=== PATIENT | female | born 1940 | race Caucasian/White ===

== ENCOUNTER 2016-12-17 11:38 | Observation (INO) | payer MEDICARE ==
--- NOTE | 2016-12-17 11:51 | ED ---
Altered Mental Status HPI - General Stated Complaint: Altered Mental Time Seen by Provider: 12/17/16 11:39 Source: patient, EMS, RN notes reviewed Mode of arrival: EMS Limitations: no limitations - History of Present Illness Initial Comments: 76 year old female presents emergency department via EMS for altered mental status. Patient comes from assisted living home. Patient was recently discharged from [facility] on the [facility]. Patient information is limited at this time as a Garcia altered. Patient states that she came from [place] she denied no definite where she was seen at. Patient does have a history of frequent recurrent tract infections. Family felt that she was more altered than usual. Patient has normal left-sided weakness which is unchanged. Patient denies chest pain, shortness breath, headache, dizziness. Patient has no abdominal complaints. Patient mentions limited at this time. - Related Data Home Medications Medication Instructions Recorded Confirmed Eucerin Cream 1 applic TOPICAL BID 12/17/16 12/17/16 L.acidoph,Paracasei, B.lactis 1 cap PO DAILY 12/17/16 12/17/16 [Probiotic] Lactulose 10 gm PO BID PRN 12/17/16 12/17/16 Loratadine [Claritin] 10 mg PO DAILY 12/17/16 12/17/16 Metoprolol Succinate (ER) [Toprol 50 mg PO DAILY 12/17/16 12/17/16 Xl] Pravastatin Sodium [Pravachol] 20 mg PO HS 12/17/16 12/17/16 Triamcinolone 0.1% Cream [Kenalog] 1 applicatio TOPICAL BID 12/17/16 12/17/16 amLODIPine [Norvasc] 10 mg PO DAILY 12/17/16 12/17/16 risperiDONE [RisperDAL] 1 mg PO BID 12/17/16 12/17/16 traMADol HCL [Ultram] 50 mg PO Q12H PRN 12/17/16 12/17/16 Allergies Allergy/AdvReac Type Severity Reaction Status Date / Time cephalexin [From Keflex] Allergy Unknown Verified 12/17/16 12:19 codeine Allergy Unknown Verified 12/17/16 12:19 Penicillins Allergy Unknown Verified 12/17/16 12:19 Review of Systems ROS Statement: Those systems with pertinent positive or pertinent negative responses have been documented in the HPI. ROS Other: All systems not noted in ROS Statement are negative. Past Medical History History of Any Multi-Drug Resistant Organisms: ESBL Date of last positivie culture/infection: 07/01/16 MDRO Source:: ESBL URINE [email or web address] General Exam Limitations: altered mental status General appearance: alert, in no apparent distress Head exam: Present: atraumatic, normocephalic, normal inspection Eye exam: Present: normal appearance, PERRL, EOMI. Absent: scleral icterus, conjunctival injection, periorbital swelling ENT exam: Present: normal exam, mucous membranes moist Neck exam: Present: normal inspection, full ROM. Absent: tenderness, meningismus, lymphadenopathy Respiratory exam: Present: normal lung sounds bilaterally. Absent: respiratory distress, wheezes, rales, rhonchi, stridor Cardiovascular Exam: Present: regular rate, normal rhythm, normal heart sounds. Absent: systolic murmur, diastolic murmur, rubs, gallop, clicks GI/Abdominal exam: Present: soft, normal bowel sounds. Absent: distended, tenderness, guarding, rebound, rigid Extremities exam: Present: other (Chronic left-sided weakness) Neurological exam: Present: alert, CN II-XII intact. Absent: oriented X3 Skin exam: Present: warm, dry, intact, normal color. Absent: rash Course Vital Signs 12/17/16 11:41 Temperature 97.6 F Pulse Rate 87 Respiratory 16 Rate Blood Pressure 132/65 Medical Decision Making - Medical Decision Making 76-year-old female presented for altered mental status. Family members here states that she is slightly altered. Patient does have recurrent urinary tract infections. Patient's vitals are within normal limits, no fever, no white count. Patient does not meet sepsis criteria at this time. Patient will be started on IV antibiotics while therapy. Patient we monitored closely and patient. - Lab Data Result diagrams: 12/17/16 12:17 12/17/16 12:17 Lab Results 12/17/16 12/17/16 12/17/16 Range/Units 12:17 12:17 12:17 WBC 9.6 (3.8-10.6) k/uL RBC 4.09 (3.80-5.40) m/uL Hgb 12.5 (11.4-16.0) gm/dL Hct 38.2 (34.0-46.0) % MCV 93.3 (80.0-100.0) fL MCH 30.5 (25.0-35.0) pg MCHC 32.7 (31.0-37.0) g/dL RDW 14.3 (11.5-15.5) % Plt Count 322 (150-450) k/uL Neutrophils % 69 % Lymphocytes % 17 % Monocytes % 7 % Eosinophils % 4 % Basophils % 0 % Neutrophils # 6.6 (1.3-7.7) k/uL Lymphocytes # 1.7 (1.0-4.8) k/uL Monocytes # 0.7 (0-1.0) k/uL Eosinophils # 0.4 (0-0.7) k/uL Basophils # 0.0 (0-0.2) k/uL PT (9.0-12.0) sec INR (<1.1) APTT (22.0-30.0) sec Sodium 142 (137-145) mmol/L Potassium 4.2 (3.5-5.1) mmol/L Chloride 103 (98-107) mmol/L Carbon Dioxide 27 (22-30) mmol/L Anion Gap 12 mmol/L BUN 14 (7-17) mg/dL Creatinine 1.67 H (0.52-1.04) mg/dL Est GFR (MDRD) Af Amer 36 (>60 ml/min/1.73 sqM) Est GFR (MDRD) Non-Af 30 (>60 ml/min/1.73 sqM) Glucose 111 H (74-99) mg/dL POC Glucose (mg/dL) (75-99) mg/dL POC Glu [place] Reverse Winder ID Calcium 10.2 (8.4-10.2) mg/dL Total Bilirubin 0.8 (0.2-1.3) mg/dL AST 30 (14-36) U/L ALT 40 (9-52) U/L Alkaline Phosphatase 86 (38-126) U/L Total Creatine Kinase 55 (30-135) U/L CK-MB (CK-2) 0.3 (0.0-2.4) ng/mL CK-MB (CK-2) Rel Index 0.5 Troponin I <0.012 (0.000-0.034) ng/mL Total Protein 7.4 (6.3-8.2) g/dL Albumin 3.7 (3.5-5.0) g/dL Urine Color Urine Appearance (Clear) Urine pH (5.0-8.0) Ur Specific [place] (1.001-1.035) Urine Protein (Negative) Urine Glucose (UA) (Negative) Urine Ketones (Negative) Urine Blood (Negative) Urine Nitrate (Negative) Urine Bilirubin (Negative) Urine Urobilinogen (<2.0) mg/dL Ur Leukocyte Esterase (Negative) Urine RBC (0-5) /hpf Urine WBC (0-5) /hpf Ur Squamous Epith Cells (0-4) /hpf Urine Bacteria (None) /hpf Urine Mucus (None) /hpf 12/17/16 12/17/16 12/17/16 Range/Units 12:35 12:55 12:59 WBC (3.8-10.6) k/uL RBC (3.80-5.40) m/uL Hgb (11.4-16.0) gm/dL Hct (34.0-46.0) % MCV (80.0-100.0) fL MCH (25.0-35.0) pg MCHC (31.0-37.0) g/dL RDW (11.5-15.5) % Plt Count (150-450) k/uL Neutrophils % % Lymphocytes % % Monocytes % % Eosinophils % % Basophils % % Neutrophils # (1.3-7.7) k/uL Lymphocytes # (1.0-4.8) k/uL Monocytes # (0-1.0) k/uL Eosinophils # (0-0.7) k/uL Basophils # (0-0.2) k/uL PT 10.6 (9.0-12.0) sec INR 1.0 (<1.1) APTT 22.0 (22.0-30.0) sec Sodium (137-145) mmol/L Potassium (3.5-5.1) mmol/L Chloride (98-107) mmol/L Carbon Dioxide (22-30) mmol/L Anion Gap mmol/L BUN (7-17) mg/dL Creatinine (0.52-1.04) mg/dL Est GFR (MDRD) Af Amer (>60 ml/min/1.73 sqM) Est GFR (MDRD) Non-Af (>60 ml/min/1.73 sqM) Glucose (74-99) mg/dL POC Glucose (mg/dL) 100 H (75-99) mg/dL POC Glu [place] Reverse Winder ID Kasey Love Calcium (8.4-10.2) mg/dL Total Bilirubin (0.2-1.3) mg/dL AST (14-36) U/L ALT (9-52) U/L Alkaline Phosphatase (38-126) U/L Total Creatine Kinase (30-135) U/L CK-MB (CK-2) (0.0-2.4) ng/mL CK-MB (CK-2) Rel Index Troponin I (0.000-0.034) ng/mL Total Protein (6.3-8.2) g/dL Albumin (3.5-5.0) g/dL Urine Color Yellow Urine Appearance Cloudy H (Clear) Urine pH 6.5 (5.0-8.0) Ur Specific [place] 1.010 (1.001-1.035) Urine Protein 1+ H (Negative) Urine Glucose (UA) Negative (Negative) Urine Ketones Negative (Negative) Urine Blood Negative (Negative) Urine Nitrate Positive H (Negative) Urine Bilirubin Negative (Negative) Urine Urobilinogen <2.0 (<2.0) mg/dL Ur Leukocyte Esterase Large H (Negative) Urine RBC 4 (0-5) /hpf Urine WBC 99 H (0-5) /hpf Ur Squamous Epith Cells 3 (0-4) /hpf Urine Bacteria Moderate H (None) /hpf Urine Mucus Rare H (None) /hpf Disposition Clinical Impression: Altered mental status, UTI (urinary tract infection) Disposition: ADMITTED IP TO THIS HOSP
[2016-12-17 12:42] LABS: Basophils % (A) 0 %; CH 31.1; CHCM 33.5; Eosinophils # (A) 0.4 k/uL (0-0.7); Eosinophils % (A) 4 %; HCT 38.2 % (34.0-46.0); HDW 3.13; HGB 12.5 gm/dL (11.4-16.0); Luc # (Auto) 0.24; Luc % (Auto) 3; Lymphocytes # (A) 1.7 k/uL (1.0-4.8); Lymphocytes % (A) 17 %; MCH 30.5 pg (25.0-35.0); MCHC 32.7 g/dL (31.0-37.0); MCV 93.3 fL (80.0-100.0); Mean Platelet Volume 6.8; Monocytes # (A) 0.7 k/uL (0-1.0); Monocytes % (A) 7 %; Neutrophils # (A) 6.6 k/uL (1.3-7.7); Neutrophils % (A) 69 %; RBC 4.09 m/uL (3.80-5.40); RDW 14.3 % (11.5-15.5); WBC 9.6 k/uL (3.8-10.6); WBC (Perox) 9.58
[2016-12-17 12:52] LABS: Calcium 10.2 mg/dL (8.4-10.2); Potassium 4.2 mmol/L (3.5-5.1); Total Bilirubin 0.8 mg/dL (0.2-1.3); Total Protein 7.4 g/dL (6.3-8.2)
[2016-12-17 13:01] LABS: Glucose,Whole Blood 100 mg/dL (75-99)
[2016-12-17 13:02] LABS: Appearance,Urine Cloudy (Clear); Bacteria,Urine Moderate /hpf; Bilirubin,Urine Negative (Negative); Glucose,Urine (UA) Negative (Negative); Ketones,Urine Negative (Negative); Leukocyte Esterase,Urine Large (Negative); Mucus,Urine Rare /hpf; Nitrite,Urine Positive (Negative); PH, Urine 6.5 (5.0-8.0); Particle Count 112851; Protein,Urine 1+ (Negative); RBC,Urine 4 /hpf (0-5); Squamous Epithelial Cell,Urine 3 /hpf (0-4); UA Billing (MACRO vs. MICRO) MICRO; Urobilinogen,Urine <2.0 mg/dL (<2.0); WBC,Urine 99 /hpf (0-5)
[2016-12-17 13:05] LABS: Creatine Kinase 55 U/L (30-135)
[2016-12-17 13:16] LABS: Creatine Kinase MB 0.3 ng/mL (0.0-2.4); Troponin I <0.012 ng/mL (0.000-0.034)
[2016-12-17 13:27] LABS: Prothrombin Time 10.6 sec (9.0-12.0)
--- NOTE | 2016-12-17 14:22 | XR ---
EXAMINATION TYPE: XR chest 2V DATE OF EXAM: 12/17/2016 2:06 PM COMPARISON: NONE HISTORY: Altered mental status TECHNIQUE: Frontal and lateral views of the chest are obtained. FINDINGS: Patient is rotated and lung volumes are low. Interstitium is somewhat increased. Surgical clips in the right axilla. No evident pneumothorax or pleural effusion. Heart is enlarged. IMPRESSION: Rotated expiratory exam. Cardiomegaly. Difficult to exclude some central atelectasis or possible pulmonary venous hypertension and early interstitial edema, follow-up recommended as indicat ed
--- NOTE | 2016-12-17 14:32 | CT ---
EXAMINATION TYPE: CT brain wo con DATE OF EXAM: 12/17/2016 1:59 PM COMPARISON: NONE INDICATION: Patient poor historian. Patient shows signs of altered mental status. DLP: 816.3 mGycm, Automated exposure control for dose reduction was used. CONTRAST: None CT of the brain is performed utilizing 3 mm thick sections through the posterior fossa and 3 mm thick sections through the remaining calvarium. Study is performed within 24 hours of arrival to the hosp ital. No abnormal hyperdensity is present to suggest an acute intracranial hemorrhage. No mass lesion is evident. No acute infarcts are evident. There are confluent white matter hypodensities within the periventricu lar white matter greater in the frontal regions. Findings could be compatible with chronic white princess er ischemic change. Ventricles and sulci are mildly prominent for the patient age. There is mucosal thickening throughout ethmoid air cells. Frontal sinuses are hypoplastic. Sphenoid s inus is within the [id number] and mastoid air cells within the [id number] are clear. IMPRESSIONS: 1. Chronic appearing white matter ischemic changes and age-related atrophy.
[2016-12-17] MEDS ORDERED: LEVOFLOXACIN 750MG-D5W PMX 750 MG in DEXTROSE/WATER 1 150ML.BAG IVPB STA (14:42)
[2016-12-17] MEDS ORDERED: NALOXONE 0.4 MG/ML 1 ML VIAL IV PRN (14:43)
[2016-12-17] MEDS ORDERED: ONDANSETRON 4 MG/2 ML VIAL IVP PRN (14:43)
[2016-12-17] MEDS ORDERED: LORazepam 2 MG/ML SYRINGE IV PRN (14:43)
--- NOTE | 2016-12-17 14:43 | ED ---
Altered Mental Status HPI - General Chief Complaint: Altered Mental Status Stated Complaint: Altered Mental Time Seen by Provider: 12/17/16 11:39 Source: patient, EMS, RN notes reviewed Mode of arrival: EMS Limitations: altered mental status - Related Data Home Medications Medication Instructions Recorded Confirmed Eucerin Cream 1 applic TOPICAL BID 12/17/16 12/17/16 L.acidoph,Paracasei, B.lactis 1 cap PO DAILY 12/17/16 12/17/16 [Probiotic] Lactulose 10 gm PO BID PRN 12/17/16 12/17/16 Loratadine [Claritin] 10 mg PO DAILY 12/17/16 12/17/16 Metoprolol Succinate (ER) [Toprol 50 mg PO DAILY 12/17/16 12/17/16 Xl] Pravastatin Sodium [Pravachol] 20 mg PO HS 12/17/16 12/17/16 Triamcinolone 0.1% Cream [Kenalog] 1 applicatio TOPICAL BID 12/17/16 12/17/16 amLODIPine [Norvasc] 10 mg PO DAILY 12/17/16 12/17/16 risperiDONE [RisperDAL] 1 mg PO BID 12/17/16 12/17/16 traMADol HCL [Ultram] 50 mg PO Q12H PRN 12/17/16 12/17/16 Allergies Allergy/AdvReac Type Severity Reaction Status Date / Time cephalexin [From Keflex] Allergy Unknown Verified 12/17/16 12:19 codeine Allergy Unknown Verified 12/17/16 12:19 Penicillins Allergy Unknown Verified 12/17/16 12:19 Review of Systems ROS Statement: Those systems with pertinent positive or pertinent negative responses have been documented in the HPI. ROS Other: All systems not noted in ROS Statement are negative. Past Medical History Past Medical History: CVA/TIA, Dementia, Hypertension, Renal Disease Additional Past Medical History / Comment(s): left sided weakness r/t HX of CVA. HX of UTI History of Any Multi-Drug Resistant Organisms: ESBL Date of last positivie culture/infection: 07/01/16 MDRO Source:: ESBL URINE [email or web address] Past Surgical History: Hysterectomy Past Psychological History: Bipolar Smoking Status: Former smoker Past Alcohol Use History: None Reported Past Drug Use History: None Reported General Exam Limitations: altered mental status General appearance: alert, in no apparent distress Course Vital Signs 12/17/16 11:41 Temperature 97.6 F Pulse Rate 87 Respiratory 16 Rate Blood Pressure 132/65 Medical Decision Making - Lab Data Result diagrams: 12/17/16 12:17 12/17/16 12:17 Lab Results 12/17/16 12/17/16 12/17/16 Range/Units 12:17 12:17 12:17 WBC 9.6 (3.8-10.6) k/uL RBC 4.09 (3.80-5.40) m/uL Hgb 12.5 (11.4-16.0) gm/dL Hct 38.2 (34.0-46.0) % MCV 93.3 (80.0-100.0) fL MCH 30.5 (25.0-35.0) pg MCHC 32.7 (31.0-37.0) g/dL RDW 14.3 (11.5-15.5) % Plt Count 322 (150-450) k/uL Neutrophils % 69 % Lymphocytes % 17 % Monocytes % 7 % Eosinophils % 4 % Basophils % 0 % Neutrophils # 6.6 (1.3-7.7) k/uL Lymphocytes # 1.7 (1.0-4.8) k/uL Monocytes # 0.7 (0-1.0) k/uL Eosinophils # 0.4 (0-0.7) k/uL Basophils # 0.0 (0-0.2) k/uL PT (9.0-12.0) sec INR (<1.1) APTT (22.0-30.0) sec Sodium 142 (137-145) mmol/L Potassium 4.2 (3.5-5.1) mmol/L Chloride 103 (98-107) mmol/L Carbon Dioxide 27 (22-30) mmol/L Anion Gap 12 mmol/L BUN 14 (7-17) mg/dL Creatinine 1.67 H (0.52-1.04) mg/dL Est GFR (MDRD) Af Amer 36 (>60 ml/min/1.73 sqM) Est GFR (MDRD) Non-Af 30 (>60 ml/min/1.73 sqM) Glucose 111 H (74-99) mg/dL POC Glucose (mg/dL) (75-99) mg/dL POC Glu Oil Furnace Installer ID Calcium 10.2 (8.4-10.2) mg/dL Total Bilirubin 0.8 (0.2-1.3) mg/dL AST 30 (14-36) U/L ALT 40 (9-52) U/L Alkaline Phosphatase 86 (38-126) U/L Total Creatine Kinase 55 (30-135) U/L CK-MB (CK-2) 0.3 (0.0-2.4) ng/mL CK-MB (CK-2) Rel Index 0.5 Troponin I <0.012 (0.000-0.034) ng/mL Total Protein 7.4 (6.3-8.2) g/dL Albumin 3.7 (3.5-5.0) g/dL Urine Color Urine Appearance (Clear) Urine pH (5.0-8.0) Ur Specific Excel (1.001-1.035) Urine Protein (Negative) Urine Glucose (UA) (Negative) Urine Ketones (Negative) Urine Blood (Negative) Urine Nitrate (Negative) Urine Bilirubin (Negative) Urine Urobilinogen (<2.0) mg/dL Ur Leukocyte Esterase (Negative) Urine RBC (0-5) /hpf Urine WBC (0-5) /hpf Ur Squamous Epith Cells (0-4) /hpf Urine Bacteria (None) /hpf Urine Mucus (None) /hpf 12/17/16 12/17/16 12/17/16 Range/Units 12:35 12:55 12:59 WBC (3.8-10.6) k/uL RBC (3.80-5.40) m/uL Hgb (11.4-16.0) gm/dL Hct (34.0-46.0) % MCV (80.0-100.0) fL MCH (25.0-35.0) pg MCHC (31.0-37.0) g/dL RDW (11.5-15.5) % Plt Count (150-450) k/uL Neutrophils % % Lymphocytes % % Monocytes % % Eosinophils % % Basophils % % Neutrophils # (1.3-7.7) k/uL Lymphocytes # (1.0-4.8) k/uL Monocytes # (0-1.0) k/uL Eosinophils # (0-0.7) k/uL Basophils # (0-0.2) k/uL PT 10.6 (9.0-12.0) sec INR 1.0 (<1.1) APTT 22.0 (22.0-30.0) sec Sodium (137-145) mmol/L Potassium (3.5-5.1) mmol/L Chloride (98-107) mmol/L Carbon Dioxide (22-30) mmol/L Anion Gap mmol/L BUN (7-17) mg/dL Creatinine (0.52-1.04) mg/dL Est GFR (MDRD) Af Amer (>60 ml/min/1.73 sqM) Est GFR (MDRD) Non-Af (>60 ml/min/1.73 sqM) Glucose (74-99) mg/dL POC Glucose (mg/dL) 100 H (75-99) mg/dL POC Glu Oil Furnace Installer ID Kasey Love Calcium (8.4-10.2) mg/dL Total Bilirubin (0.2-1.3) mg/dL AST (14-36) U/L ALT (9-52) U/L Alkaline Phosphatase (38-126) U/L Total Creatine Kinase (30-135) U/L CK-MB (CK-2) (0.0-2.4) ng/mL CK-MB (CK-2) Rel Index Troponin I (0.000-0.034) ng/mL Total Protein (6.3-8.2) g/dL Albumin (3.5-5.0) g/dL Urine Color Yellow Urine Appearance Cloudy H (Clear) Urine pH 6.5 (5.0-8.0) Ur Specific Excel 1.010 (1.001-1.035) Urine Protein 1+ H (Negative) Urine Glucose (UA) Negative (Negative) Urine Ketones Negative (Negative) Urine Blood Negative (Negative) Urine Nitrate Positive H (Negative) Urine Bilirubin Negative (Negative) Urine Urobilinogen <2.0 (<2.0) mg/dL Ur Leukocyte Esterase Large H (Negative) Urine RBC 4 (0-5) /hpf Urine WBC 99 H (0-5) /hpf Ur Squamous Epith Cells 3 (0-4) /hpf Urine Bacteria Moderate H (None) /hpf Urine Mucus Rare H (None) /hpf Disposition Clinical Impression: Altered mental status, UTI (urinary tract infection) Disposition: ADMITTED IP TO THIS HOSP Condition: Stable Referrals: Benjamin Carter MD [Primary Care Provider] - 1-2 days Time of Disposition: 14:43
[2016-12-17] MEDS ORDERED: traMADol 50 MG TAB PO PRN (14:44)
[2016-12-17] MEDS ORDERED: LACTULOSE 20 GM/30 ML CUP PO PRN (14:44)
[2016-12-17] MEDS ORDERED: ACETAMINOPHEN IV (For NPO) 1,000 MG in EMPTY BAG 1 BAG IVPB STA (14:53)
[2016-12-17 20:02] LABS: Glucose,Whole Blood 82 mg/dL (75-99)
[2016-12-17] MEDS: risperiDONE 1 MG TAB PO SCH (20:58)
[2016-12-17] MEDS: PRAVASTATIN SODIUM 20 MG TAB PO SCH (21:08)
[2016-12-18] MEDS: METOPROLOL SUCCINATE (ER) 50 MG TAB.ER.24H PO SCH (07:57)
[2016-12-18] MEDS: amLODIPine 10 MG TAB PO SCH (07:57)
[2016-12-18] MEDS: risperiDONE 1 MG TAB PO SCH ×2 (07:57→19:55)
[2016-12-18] MEDS: TRIAMCINOLONE 0.1% CREAM 80 GM TUBE TOPICAL SCH ×2 (10:18→20:23)
[2016-12-18] MEDS ORDERED: LORazepam 0.5 MG TAB PO PRN (13:24)
[2016-12-18] MEDS: MINERAL OIL-WHITE PETROLATUM 120 GM JAR TOPICAL SCH ×2 (14:16→20:23)
--- NOTE | 2016-12-18 14:29 | HP ---
DATE OF ADMISSION: 12/17/2016 PRESENTING COMPLAINT: Altered mental status. HISTORY OF PRESENTING COMPLAINT: This is a 76-year-old patient of Visiting Physician, Dr. Carter, whose chronic stable medical conditions include coronary artery disease with prior stroke with left-sided weakness, dementia, hyperlipidemia, hypertension. Patient was at [facility] recently and has been at [facility] for about a week. Patient was brought in feeling more lethargic. Patient herself is not much of a historian, cannot tell me why she is here. Patient was difficult to arouse this morning per the nursing staff. They held the Risperdal. Patient's urine did come by infected-appearing and she was given ceftriaxone in the ER. The patient herself is not able to give me any history, can only answer some simple questions. REVIEW OF SYSTEMS: Cannot get more details. See above. Past medical history of coronary artery disease, strokes, left-sided weakness, dementia, hyperlipidemia, hypertension, bipolar, some renal disease. PAST SURGICAL HISTORY: Hysterectomy. SOCIAL HISTORY: No smoking. No alcohol Patient currently a resident of [facility]. FAMILY HISTORY: Patient cannot tell. HOME MEDICATIONS: 1. Ultram 50 mg p.o. q.12 p.r.n. 2. Risperdal 1 mg p.o. b.i.d. 3. Norvasc 10 mg p.o. daily. 4. Kenalog topical b.i.d. 5. Pravachol 20 mg p.o. q.h.s. 6. Toprol-XL 50 mg p.o. daily. 7. Claritin 10 mg p.o. daily. 8. Lactulose 10 mg p.o. daily p.r.n. 9. Probiotic 1 capsule p.o. daily. 10. Eucerin cream topical b.i.d. ALLERGY TO KEFLEX, CODEINE, PENICILLIN. On examination, T-max 100.5, pulse 88, respiratory rate 14, blood pressure 131/71, pulse 92% on 2 liters. GENERAL APPEARANCE: Obese; BMI of 32.3, lying in bed, tired, but awake. EYES: Pupils equal. Conjunctivae normal. HEENT: Oral cavity normal. NECK: JVD not raised. Mass not palpable. RESPIRATORY: Effort normal. Lungs are clear. CARDIOVASCULAR: First and second sounds normal. No edema. ABDOMEN: Soft, nontender. Liver and spleen not palpable. PSYCHIATRY: Patient could only answer very simple questions, more of a yes and no, but cannot give me rather more descriptive answers. NEUROLOGICAL: Pupils equal. Some left-sided weakness is present. INVESTIGATIONS: White count 9.6, hemoglobin 12.5. Potassium 4.2, BUN 40, creatinine 1.67. UA positive for nitrite, leukocyte esterase, WBC. ASSESSMENT: 1. Acute urinary tract infection with some possible acute delirium from the same, could be contribution of medication induced. 2. Acute metabolic encephalopathy, could be medication induced. Patient not arousable this morning. Had to be held off of Risperdal and also could be contribution of Claritin. 3. Obesity; body mass index 32.3. 4. Coronary artery disease. 5. Some mild left-sided weakness from chronic stroke. 6. Alzheimer's dementia, probably late onset, no clear evidence of psychosis. 7. Hyperlipidemia. 8. Hypertension. 9. Possible bipolar, history of. PLAN: At this point, patient was put on IV ceftriaxone. Will await culture results. We will cut back on the dose of Risperdal 2.75 and 19.25 in the morning. We will discontinue the Claritin for now. We will see how the patient fairs and go from there.
[2016-12-18] MEDS: risperiDONE 0.25 MG TAB PO SCH (20:18)
[2016-12-18] MEDS: PRAVASTATIN SODIUM 20 MG TAB PO SCH (20:18)
[2016-12-19] MEDS: amLODIPine 10 MG TAB PO SCH (08:22)
[2016-12-19] MEDS: risperiDONE 0.25 MG TAB PO SCH ×2 (08:22→20:48)
[2016-12-19] MEDS: METOPROLOL SUCCINATE (ER) 50 MG TAB.ER.24H PO SCH (08:22)
[2016-12-19] MEDS: TRIAMCINOLONE 0.1% CREAM 80 GM TUBE TOPICAL SCH ×2 (08:23→20:47)
[2016-12-19] MEDS: MINERAL OIL-WHITE PETROLATUM 120 GM JAR TOPICAL SCH ×2 (08:23→20:47)
[2016-12-19] MEDS: PRAVASTATIN SODIUM 20 MG TAB PO SCH (20:48)
--- NOTE | 2016-12-20 08:26 | PN ---
DATE OF SERVICE: 12/19/2016 PRESENTING COMPLAINT: Altered mental status. INTERVAL HISTORY: This is a patient who presented with a UTI and metabolic encephalopathy. Patient's dose of Risperdal was cut back. Claritin was discontinued. Patient far more awake today, sitting up. Daughter at the bedside. Patient is eating her meals. More communicative. Review of systems done for constitutional, cardiovascular, GI, pulmonary; relevant findings as above. Current medications are reviewed and include IV ceftriaxone. On examination, temperature 98.4, pulse 77, respirations 21, blood pressure 133/63, pulse ox 95% on 2 liters. GENERAL APPEARANCE: Sitting up, more awake. EYES: Pupils equal. Conjunctivae normal. NECK: JVD not raised. Mass not palpable. RESPIRATORY: Effort normal. Lungs are clear. CARDIOVASCULAR: First and second sounds. No edema. ABDOMEN: Soft, nontender. Liver and spleen not palpable. PSYCHIATRY: Awake, answering questions more appropriately. INVESTIGATIONS: Urine is growing Escherichia coli. ASSESSMENT: 1. Acute urinary tract infection with delirium from Escherichia coli. 2. Acute metabolic encephalopathy probably medication induced, probably from Risperdal, improved with the dose being cut back. 3. Obesity, body mass index of 32.3. 4. Coronary artery disease. 5. Left-sided weakness from old stroke. 6. Alzheimer's dementia, probably late onset with no evidence of psychosis. 7. Hyperlipidemia. 8. Essential hypertension. 9. Bipolar disorder. PLAN: Care was discussed with daughter. She is quite happy. We will switch the patient over to Keflex. Continue current medication and treatment plan. Will follow.
[2016-12-20 09:04] LABS: Basophils % (A) 0 %; CH 30.7; CHCM 32.9; Eosinophils # (A) 0.6 k/uL (0-0.7); Eosinophils % (A) 5 %; HCT 38.3 % (34.0-46.0); HDW 3.17; HGB 12.2 gm/dL (11.4-16.0); Luc # (Auto) 0.22; Luc % (Auto) 2; Lymphocytes # (A) 1.7 k/uL (1.0-4.8); Lymphocytes % (A) 17 %; MCH 29.8 pg (25.0-35.0); MCHC 31.7 g/dL (31.0-37.0); MCV 93.9 fL (80.0-100.0); Mean Platelet Volume 6.8; Monocytes # (A) 0.5 k/uL (0-1.0); Monocytes % (A) 5 %; Neutrophils # (A) 7.1 k/uL (1.3-7.7); Neutrophils % (A) 70 %; RBC 4.08 m/uL (3.80-5.40); RDW 13.8 % (11.5-15.5); WBC 10.2 k/uL (3.8-10.6); WBC (Perox) 10.63
[2016-12-20] MEDS: risperiDONE 0.25 MG TAB PO SCH ×2 (09:38→20:29)
[2016-12-20] MEDS: amLODIPine 10 MG TAB PO SCH (09:38)
[2016-12-20] MEDS: METOPROLOL SUCCINATE (ER) 50 MG TAB.ER.24H PO SCH (09:38)
[2016-12-20] MEDS: MINERAL OIL-WHITE PETROLATUM 120 GM JAR TOPICAL SCH ×2 (09:39→20:30)
[2016-12-20] MEDS: TRIAMCINOLONE 0.1% CREAM 80 GM TUBE TOPICAL SCH ×2 (09:39→20:30)
[2016-12-20] MEDS: PRAVASTATIN SODIUM 20 MG TAB PO SCH (20:29)
[2016-12-20] MEDS ORDERED: SODIUM CHLORIDE 0.9% 1,000 ML IV SCH (21:00)
[2016-12-21 00:26] VITALS: RESP 18
[2016-12-21] MEDS: TRIAMCINOLONE 0.1% CREAM 80 GM TUBE TOPICAL SCH (07:34)
[2016-12-21] MEDS: MINERAL OIL-WHITE PETROLATUM 120 GM JAR TOPICAL SCH (07:34)
[2016-12-21] MEDS: amLODIPine 10 MG TAB PO SCH (07:34)
[2016-12-21] MEDS: METOPROLOL SUCCINATE (ER) 50 MG TAB.ER.24H PO SCH (07:34)
[2016-12-21] MEDS: CEPHALEXIN 500 MG CAP PO SCH ×2 (08:46→13:23)
--- NOTE | 2016-12-21 12:25 | PN ---
DATE OF SERVICE: 12/20/2016 PRESENTING COMPLAINT: Altered mental status. INTERVAL HISTORY: This patient presented with acute UTI and metabolic encephalopathy, after dose of Risperdal was cut back, doing well, actually tolerating a diet. Far more communicative. When I walked into the room she said janet doctor. Review of systems done for for constitutional, cardiovascular, GI, pulmonary; relevant findings as above. Current medications are reviewed that include Keflex. On examination, temperature 98.3, pulse 82, respirations 19, blood pressure 131/66, pulse ox 93% on 2 L. GENERAL APPEARANCE: Sitting up, comfortable. EYES: Pupils equal, conjunctivae normal. NECK: JVD not raised. Mass not palpable. Respiratory effort normal. Lungs are clear. CARDIOVASCULAR: First and second sounds normal. No edema. ABDOMEN: Soft, nontender. Liver and spleen not palpable. PSYCHIATRY: Awake, answering questions. INVESTIGATIONS: White count 10.2. Potassium 5.0, BUN 23, creatinine 1.30. ASSESSMENT: 1. Acute urinary tract infection causing delirium from Escherichia coli. 2. Acute metabolic encephalopathy, probably medication-induced, probably from Risperdal improvement, dose being cut back. 3. Obesity, body mass index of 32.3. 4. Coronary artery disease. 5. Left-sided weakness from old stroke. 6. Alzheimer's dementia, probably late onset. 7. Hyperlipidemia. 8. Essential hypertension. 9. Bipolar disorder, history of. PLAN: Continue current medication and treatment plan. Patient overall doing much better. Will DC the morning dose of Risperdal as patient is relative more sleeping this morning. Will also hydrate the patient overnight.
--- NOTE | 2016-12-21 14:59 | DS ---
DATE OF ADMISSION: 12/17/2016 DATE OF DISCHARGE: FINAL DIAGNOSIS(ES): 1. Acute urinary tract infection causing delirium from Escherichia coli present on admission. 2. Acute metabolic encephalopathy medication induced and probably from infection, including ( ) present on admission. 3. Obesity, body mass index of 32.3. 4. Coronary artery disease. 5. Left-sided weakness from old stroke. 6. Alzheimer's dementia, late onset. 7. Hyperlipidemia. 8. Essential hypertension. HOSPITAL COURSE: This patient presented with drowsy, lethargic, found to have UTI . Dose of Risperdal was cut back. Patient is doing really well, tolerating a diet. Urine culture did come back showing E. coli. Patient's BUN/creatinine was 23, 1.30. Today I tried to call the daughter twice on the phone to just give her an update. On exam, lungs are clear. CARDIOVASCULAR: First and second seconds are normal. DISCHARGE MEDICATIONS: 1. Eucerin cream topical b.i.d. 2. Probiotic 1 capsule p.o. daily. 3. Lactulose 10 grams p.o. b.i.d. p.r.n. 4. Toprol-XL 50 mg p.o. daily. 5. Mevacor 20 mg q.h.s. 6. Kenalog 0.1% topical b.i.d. 7. Norvasc 10 mg p.o. daily. 8. Keflex 100 mg q.i.d. 15 capsules. 9. Ativan 0.5 p.o. q.6 p.r.n. for anxiety. 10. Risperdal 0.75 mg p.o. q.h.s. 11. Ultram 50 mg p.o. q.12 p.r.n. for pain. DISPOSITION: [facility]. Follow up with Dr. Bryan at [facility] 12/21/2016. Follow up with Dr. Carter visiting physician after discharge. On examination the patient is sitting up answering questions. LUNGS: Fair air entry. CARDIOVASCULAR: First and second seconds normal.
[2016-12-21 15:00] VITALS: BP 121/70; PULSE 72; TEMP 97.2
[2016-12-21] MEDS ORDERED: CEPHALEXIN 500 MG CAP PO SCH (22:00)
== END 2016-12-21 17:38 ==
LOC: EC 11:38 → 4MS4W 14:43
PROVIDERS: ADMIT Hospitalist; ATTEND Hospitalist
DX: N39.0 Urinary tract infection, site not specified (principal); G93.41 Metabolic encephalopathy; B96.20 Unspecified Escherichia coli [E. coli] as the cause of diseases classified elsewhere; E66.9 Obesity, unspecified; Z68.32 Body mass index [BMI] 32.0-32.9, adult; E78.5 Hyperlipidemia, unspecified; F02.80 Dementia in other diseases classified elsewhere, unspecified severity, without behavioral disturbance, psychotic disturbance, mood disturbance, and anxiety; G30.9 Alzheimer's disease, unspecified; F31.9 Bipolar disorder, unspecified; I10 Essential (primary) hypertension; I25.10 Atherosclerotic heart disease of native coronary artery without angina pectoris; I69.354 Hemiplegia and hemiparesis following cerebral infarction affecting left non-dominant side; Z79.899 Other long term (current) drug therapy; Z87.440 Personal history of urinary (tract) infections; Z87.891 Personal history of nicotine dependence; Z88.0 Allergy status to penicillin; Z88.1 Allergy status to other antibiotic agents; Z88.5 Allergy status to narcotic agent
CPT/HCPCS: 36415; 97161; 97166; 80053; 80048; 82550; 82553; 83605; 84484; 85025 ×2; 85610; 85730; 81001; 87086; 87186; 70450; 87077; 71020; 99285; 96365; 96367; G0378 ×5; J0696 ×2; J1956; J0131; 96361; 96368